=== PATIENT | male | born 1970 | race African-American/Black ===

== ENCOUNTER 2017-10-30 18:03 | Emergency (ER) | payer OTHER ==
[2017-10-30 18:09] VITALS: BP 144/108
[2017-10-30] MEDS ORDERED: PERCOCET 5/325 PO ONE (18:24)
[2017-10-30] MEDS ORDERED: XYLOCAINE 1% 20 mL INFILTRATI ONE (18:49)
--- NOTE | 2017-10-30 19:16 | Emergency Department Report ---
ED Extremity Problem HPI - General Chief complaint: Extremity Injury, Upper Stated complaint: RIGHT ARM FX Time Seen by Provider: 10/30/17 18:22 Source: patient Mode of arrival: Ambulatory Limitations: No Limitations - History of Present Illness Initial comments: Patient is a 46-year-old [place] gentleman who is presenting status post a fall. 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 Patient put his right hand down in order to brace himself and now he has pain at the distal wrist as well as deformity. Patient states the pain is 8 out of 10 in severity. Patient denies hitting his head or neck during this incident. Severity scale (0 -10): 10 - Related Data Previous Rx's Medication Instructions Recorded Last Taken Type Ibuprofen [Motrin] 800 mg PO Q8HR PRN #20 tablet 10/30/17 Unknown Rx oxyCODONE /ACETAMINOPHEN [Percocet 1 tab PO Q6HR PRN #20 tablet 10/30/17 Unknown Rx 5/325] Allergies Allergy/AdvReac Type Severity Reaction Status Date / Time No Known Allergies Allergy Unverified 10/30/17 18:07 ED Review of Systems ROS: Stated complaint: RIGHT ARM FX Other details as noted in HPI Comment: All other systems reviewed and negative ED Past Medical Hx - Past Medical History Previous Medical History?: No - Surgical History Past Surgical History?: No - Social History Smoking Status: Current Every Day Smoker Substance Use Type: None - Medications Home Medications: Home Medications Medication Instructions Recorded Confirmed Last Taken Type Ibuprofen [Motrin] 800 mg PO Q8HR PRN #20 tablet 10/30/17 Unknown Rx oxyCODONE /ACETAMINOPHEN [Percocet 1 tab PO Q6HR PRN #20 tablet 10/30/17 Unknown Rx 5/325] ED Physical Exam - General Limitations: No Limitations General appearance: alert, in no apparent distress - Head Head exam: Present: atraumatic, normocephalic - Eye Eye exam: Present: normal appearance - ENT ENT exam: Present: mucous membranes moist - Neck Neck exam: Present: normal inspection - Respiratory Respiratory exam: Present: normal lung sounds bilaterally. Absent: respiratory distress - Cardiovascular Cardiovascular Exam: Present: regular rate, normal rhythm. Absent: systolic murmur, diastolic murmur, rubs, gallop - GI/Abdominal GI/Abdominal exam: Present: soft, normal bowel sounds - Rectal Rectal exam: Present: deferred - Extremities Exam Extremities exam: Present: normal inspection, tenderness (at the distal wrist with deformity.). Absent: full ROM - Back Exam Back exam: Present: normal inspection - Neurological Exam Neurological exam: Present: alert, oriented X3 - Psychiatric Psychiatric exam: Present: normal affect, normal mood - Skin Skin exam: Present: warm, dry, intact, normal color. Absent: rash ED Course Vital Signs 10/30/17 18:07 Temperature 98.6 F Pulse Rate 92 H Respiratory 18 Rate Blood Pressure 144/108 O2 Sat by Pulse 97 Oximetry - Orthopedic Splinting/Casting Injury #1 Side: right Upper Extremity Injury Location: wrist Upper Extremity Immobilizer: sugartong splint Additional Comments: Hematoma block was performed by me using 10 mL of 1% lidocaine. Patient tolerated this procedure well. ED Medical Decision Making - Radiology Data Radiology results: report reviewed Patient has a distal radius fracture with slight angulation - Medical Decision Making Patient is a [age]-year-old gentleman who fell injuring his right wrist. Patient does have a fracture is placed in a splint with discharge home we'll follow orthopedics. Patient was also given pain meds here in the emergency department. He'll be discharged home with pain medicine as well. Critical care attestation.: If time is entered above; I have spent that time in minutes in the direct care of this critically ill patient, excluding procedure time. ED Disposition Clinical Impression: Distal radius fracture, right Qualifiers: Encounter type: initial encounter Fracture type: closed Fracture morphology: Colles' Qualified Code(s): S52.531A - Colles' fracture of right radius, initial encounter for closed fracture Disposition: -01 TO HOME OR SELFCARE Is pt being admited?: No Does the pt Need Aspirin: No Condition: Stable Instructions: Wrist Fracture in Adults (ED) Prescriptions: Ibuprofen [Motrin] 800 mg PO Q8HR PRN #20 tablet PRN Reason: Pain oxyCODONE /ACETAMINOPHEN [Percocet 5/325] 1 tab PO Q6HR PRN #20 tablet PRN Reason: Pain Referrals: HALLEY WHEATLEY MD [Staff Physician] - 11/05/17
--- NOTE | 2017-10-30 19:43 | XRay Report ---
FINAL REPORT PROCEDURE: Right forearm. TECHNIQUE: Two views. HISTORY: Wrist deformity. COMPARISON: No prior studies are available for comparison. FINDINGS: There is a transverse fracture through the distal metaphysis of the radius. There is mild comminution. There is approximately 8 millimeters of posterior displacement and approximately 10 degrees of posterior angulation of the distal fragment. The ulna appears intact. The soft tissues are unremarkable. IMPRESSION: Acute fracture of the distal radius as described.
== END 2017-10-30 19:35 | disposition home or self-care (01) ==
LOC: ED 18:03
DX: S52.501A Unspecified fracture of the lower end of right radius, initial encounter for closed fracture (principal); F17.200 Nicotine dependence, unspecified, uncomplicated; W01.0XXA Fall on same level from slipping, tripping and stumbling without subsequent striking against object, initial encounter; Y93.89 Activity, other specified; Y92.89 Other specified places as the place of occurrence of the external cause; Y99.8 Other external cause status
CPT/HCPCS: 99284